=== PATIENT | female | born 1965 | race Caucasian/White ===

== ENCOUNTER → 2016-10-03 | Outpatient (CLI) | payer OTHER ==
[~2016-10-03] MED LIST: AMITRIPTYLINE; CATHETER FLUSH 10 ML SYR IV PRN; FLEXERIL; HYDR-34 PO; IOHEXOL 350 MG/ML 100 ML (OMNIPAQUE 350) VIAL IV ONE; NS 100 ML (IVPB) BAG IV ONE; PROPRANOLOL; PROZAC
--- NOTE | 2016-10-03 12:01 | Diagnostic Imaging Report ---
CLINICAL INDICATION: For two weeks, patient has had swelling, hard mass in front of right ear. BB marker is in the region. Right earring is not removable. EXAM: Axial CT scan of the neck soft tissue performed with 75 cc of Omnipaque 350 IV contrast. Coronal reformatted images are created. COMPARISON: CT scan of the cervical spine without IV contrast dated 06/20/2014. FINDINGS: There is a 1.4 cm x 1.2 cm x 1.4 cm (AP x Trans x CC) nodular mass which is adjacent to the tail of the right parotid gland. This is seen beneath the right neck skin marker. There is also a more superficial smaller nodular area measuring 9 mm x 6 mm seen adjacent to this larger nodular area. There is multiple small lymph nodes seen in the periparotid regions bilaterally (right side more than the left). These nodular areas are suspected to represent lymph nodes. There is a mildly prominent lymph node in the right level IIA region which measures 1.7 cm x 1.1 cm. There are other lymph nodes seen throughout both sides of the neck. The nasopharynx, oropharynx, hypopharynx, and laryngeal structures are relatively symmetric with no mass seen. The thyroid gland and bilateral salivary glands show no significant abnormality. Visualized portions of the tongue and sublingual space is unremarkable. Visualized lung apices are clear. There are small degenerative spurs involving the upper thoracic spine and cervical spine. There is minimal mucosal thickening involving both maxillary sinuses and sphenoid sinus. Visualized intracranial structures is unremarkable. IMPRESSION: 1: There is an enlarged nodular area adjacent to the right parotid tail measuring 14 mm in greatest dimension which correlates to the area of concern. This is suspected to represent an enlarged lymph node which may be reactive, but a neoplastic process should be excluded. Other less likely consideration may include a primary salivary gland tumor. There is also a smaller more superficial likely lymph node seen adjacent to this mass. 2: There are other nonspecific lymph nodes involving both sides of the neck. 3: There is no other concern for neck mass or other significant abnormality. Dictated by: Dictated on workstation # [id number]
== END ==
LOC: RAD 09:02
PROVIDERS: ATTEND Internal Medicine
DX: R22.1 Localized swelling, mass and lump, neck (principal)
CPT/HCPCS: 70491

== ENCOUNTER → 2016-10-12 | Outpatient (CLI) | payer OTHER ==
[~2016-10-12] VITALS: Ht 165.1 cm; Wt 89.4 kg
[~2016-10-12] MED LIST changes: -CATHETER FLUSH 10 ML SYR IV PRN; -IOHEXOL 350 MG/ML 100 ML (OMNIPAQUE 350) VIAL IV ONE; +LIDOCAINE 1% INJ 20 ML (XYLOCAINE) VIAL INJ ONE; -NS 100 ML (IVPB) BAG IV ONE
--- NOTE | 2016-10-12 15:51 | Diagnostic Imaging Report ---
EXAMINATION: US-guided core biopsy-neck. INDICATION: Enlarged lymph nodes adjacent to the right parotid gland. Current history and physical and other medical records are reviewed prior to the procedure. CONSENT: Informed consent was obtained from the patient. The risks, benefits, potential complications and alternatives were reviewed and all questions answered to the patient's satisfaction. The patient's vital signs, cardiac rhythm, and pulse oximetry with observed throughout the procedure by qualified nursing personnel. Sedation/medications: none. FINDINGS: Enlarged lymph node adjacent to the right parotid the gland measuring 1.4 x 1.5 1.2 CM.. PROCEDURE: After maximal sterile barrier technique preparation and draping, 1% lidocaine was utilized for local anesthesia. With the patient in supine position, and via anterior approach, a 19-gauge guide needle is introduced into the enlarged right neck lymph node under live ultrasound guidance. After confirming adequate positioning with saved ultrasound images, multiple 20 gauge core biopsy specimens were obtained. The patient tolerated the procedure well with no immediate complications. IMPRESSION: Successful US-guided core biopsy of enlarged right upper neck lymph node adjacent to the parotid gland. Dictated by: Dictated on workstation # [id number]
== END ==
LOC: RAD 12:42
PROVIDERS: ATTEND Surgery
DX: R59.0 Localized enlarged lymph nodes (principal)
CPT/HCPCS: 76942; 88305; 88341; 88342

== ENCOUNTER 2016-11-10 10:51 | Emergency (ER) | payer OTHER ==
[~2016-11-10] VITALS: Ht 165.1 cm; Wt 92.1 kg
[~2016-11-10 10:51] MED LIST changes: -LIDOCAINE 1% INJ 20 ML (XYLOCAINE) VIAL INJ ONE
--- NOTE | 2016-11-10 11:44 | ED Lower Extremity ---
General Chief Complaint: Lower Extremity Stated Complaint: FALL/LEFT ANKLE INJURY Nursing Triage Note: C/O L ankle pain after rolling it while walking off curb Nursing Sepsis Screen: No Definite Risk Source: patient Exam Limitations: no limitations History of Present Illness Time seen by provider: 11:43 Initial Comments To ER with left ankle pain. This began just prior to arrival when she was at the [employer] store. She stepped down off of the curb and slipped in some oil. She believes that she everted the left ankle. She has pain to the anterior aspect left ankle and lateral aspect. No swelling. No other injury. Onset: just prior to arrival Severity: moderate Pain/Injury Location: left ankle Method of Injury: fell Modifying Factors: Worse With Movement Allergies and Home Medications Allergies Coded Allergies: Penicillins (Unverified Allergy, Unknown, 06/20/14) Sulfa (Sulfonamide Antibiotics) (Unverified Allergy, Unknown, 06/20/14) butorphanol (Unverified Allergy, Unknown, 06/20/14) Home Medications Hydrocodone Bit/Acetaminophen 1 Ea Tablet, 1 EA PO Q4H, #10 Prescribed by: LILLIANA DAMON on 06/20/14 0814 [Amitriptyline] , (Reported) [Flexeril] , (Reported) [Propranolol] , (Reported) [Prozac] , (Reported) Constitutional: see HPI EENTM: see HPI Respiratory: no symptoms reported Cardiovascular: no symptoms reported Genitourinary: no symptoms reported Musculoskeletal: see HPI Skin: no symptoms reported Psychiatric/Neurological: No Symptoms Reported Past Vucvhgv-[id number]-Csevfn Hx Patient Social History Alcohol Use: Denies Use Recreational Drug Use: No Smoking Status: Never a Smoker Recent Foreign Travel: No Contact w/Someone Who Travel: No Recent Infectious Disease Expo: No Seasonal Allergies Seasonal Allergies: No Surgeries HX Surgeries: Yes (CATARACTS) Surgeries: Hysterectomy Respiratory Hx Respiratory Disorders: No Cardiovascular Hx Cardiac Disorders: No Cardiac Disorders: Hypertension Neurological Hx Neurological Disorders: Yes Neurological Disorders: Headaches /Migraines Reproductive System Hx Reproductive Disorders: No Genitourinary Hx Genitourinary Disorders: No Gastrointestinal Hx Gastrointestinal Disorders: No Musculoskeletal Hx Musculoskeletal Disorders: No Endocrine Hx Endocrine Disorders: No HEENT HX ENT Disorders: No Cancer Hx Cancer: No Psychosocial Hx Psychiatric Problems: Yes Behavioral Health Disorders: Depression Physical Exam Vital Signs Vital Sign - Last 12Hours 11/10/16 11:41 Temp 98.2 Pulse 73 Resp 18 B/P (MAP) 112/68 Pulse Ox 95 Capillary Refill : Less Than 3 Seconds General Appearance: WD/WN, no apparent distress HEENT: PERRL/EOMI, normal ENT inspection Neck: non-tender, full range of motion Respiratory: no respiratory distress, no accessory muscle use Hips: bilateral hip non-tender, bilateral hip normal inspection, bilateral hip normal range of motion Legs: bilateral leg non-tender, bilateral leg normal inspection, bilateral leg normal range of motion Knees: bilateral knee non-tender, bilateral knee normal inspection, bilateral knee normal range of motion Ankles: left ankle pain, left ankle soft tissue tenderness, left ankle other ( no swelling or ecchymosis abrasion or erythema or deformity) Feet: bilateral foot non-tender, bilateral foot normal inspection, bilateral foot normal range of motion Neurologic/Psychiatric: alert, normal mood/affect, oriented x 3 Skin: normal color, warm/dry Progress/Results/Core Measures Results/Orders My Orders Orders - JOSÉ CLEVELAND APRN Ankle, Left, 3 Views (11/10/16 11:41) Foot, Left, 3 Views (11/10/16 11:49) Vital Signs/I&O Vital Sign - Last 12Hours 11/10/16 11:41 Temp 98.2 Pulse 73 Resp 18 B/P (MAP) 112/68 Pulse Ox 95 Blood Pressure Mean: 83 Departure Impression Impression: Primary Impression: Ankle sprain Disposition: 01 HOME, SELF-CARE Condition: Stable Departure-Patient Inst. Decision time for Depature: 12:23 Referrals: [facility] (PCP/Family) Primary Care Physician Patient Instructions: Ankle Sprain (DC) Add. Discharge Instructions: 1. Return to ER for any concerns 2. Follow-up with your doctor later next week for any persistent pain 3. Tylenol and Motrin for pain 4. Keep the ankle wrapped in the Marciano wrap, ice pack to it for 30 minutes every 1-2 hours and keep it elevated for the next 48 hours. Use crutches as needed when walking All discharge instructions reviewed with patient and/or family. Voiced understanding. JOSÉ CLEVELAND APRN November 10, 2016 11:44
--- NOTE | 2016-11-10 12:08 | Diagnostic Imaging Report ---
EXAMINATION: Three views of the left ankle. INDICATION: Left ankle pain after injury. FINDINGS: No fracture, dislocation, or radiopaque foreign body. The ankle mortise is normal in configuration. Osteophyte formation at the dorsal aspect of the navicular bone and the talonavicular joint is seen. IMPRESSION: No acute process. Dictated by: Dictated on workstation # [id number]
--- NOTE | 2016-11-10 12:10 | Diagnostic Imaging Report ---
Three views of the left foot. INDICATION: Left foot pain. FINDINGS: There is no fracture, dislocation or radiopaque foreign body. Joint alignment appears satisfactory. Minimal degenerative sclerotic change at the interphalangeal joints and dorsal osteophytes at the talonavicular joint seen. IMPRESSION: No acute process. Dictated by: Dictated on workstation # [id number]
[2016-11-10 12:34] VITALS: BP 112/68
== END 2016-11-10 12:34 | disposition home or self-care (01) ==
LOC: EDUNIT# 10:51 → ER 10:53
DX: S93.402A Sprain of unspecified ligament of left ankle, initial encounter (principal); W10.1XXA Fall (on)(from) sidewalk curb, initial encounter; Y99.8 Other external cause status
CPT/HCPCS: 73610; 73630; 99283

== ENCOUNTER → 2017-08-15 | Outpatient (CLI) | payer SELFPAY ==
[~2017-08-15] MED LIST changes: +CATHETER FLUSH 10 ML SYR IV PRN; +REGADENOSON 0.4 MG/5 ML SYR (LEXISCAN) IV ONE
[2017-08-15 13:50] VITALS: BP 167/97
== END ==
LOC: CARD 12:25
PROVIDERS: ATTEND Nurse Practitioner Family
DX: R07.9 Chest pain, unspecified (principal); R00.2 Palpitations; I10 Essential (primary) hypertension; E78.5 Hyperlipidemia, unspecified
CPT/HCPCS: 78452; 93017

== ENCOUNTER → 2017-08-23 | Outpatient (CLI) | payer SELFPAY ==
[~2017-08-23] MED LIST changes: -REGADENOSON 0.4 MG/5 ML SYR (LEXISCAN) IV ONE
== END ==
LOC: CARD 10:19
PROVIDERS: ATTEND Nurse Practitioner Family
DX: R07.9 Chest pain, unspecified (principal); R00.2 Palpitations; I10 Essential (primary) hypertension; E78.5 Hyperlipidemia, unspecified
CPT/HCPCS: 93306

== ENCOUNTER → 2017-08-23 | Outpatient (CLI) | payer SELFPAY ==
[~2017-08-23] MED LIST changes: -CATHETER FLUSH 10 ML SYR IV PRN
== END ==
LOC: CARD 10:29
PROVIDERS: ATTEND Nurse Practitioner Family
DX: R07.9 Chest pain, unspecified (principal); R00.2 Palpitations; I10 Essential (primary) hypertension; E78.5 Hyperlipidemia, unspecified
CPT/HCPCS: 93225; 93226